=== PATIENT | male | born 1965 | race Caucasian/White ===

== ENCOUNTER 2019-06-17 09:29 | Outpatient (CLI) | payer MEDICAID, SELFPAY ==
--- NOTE | 2019-06-17 10:12 | ECHO_ITS ---
Patient Info Name: Matteo Waterman Age: 54 years : 1965 Gender: Male Ht: 71 in Wt: 235 lbs BSA: 2.34 m2 HR: 70 bpm BP: 167 / 100 mmHg Technical Quality: Fair Exam Date: 06/17/2019 10:25 AM Exam Location: [facility] Patient Status: Outpatient Admit Date: 06/17/2019 Staff Ordering Physician: Dennis Mancilla DO Tribal Delegate: Al Meier RDCS, RT Attending Provider: Dennis Mancilla DO Referring Physician: Laurent SANTAMARIA; Exam Type: CA echo dop color flow w con Study Info Indications I42.1 - Obstructive hypertrophic cardiomyopathy Complete two-dimensional, color flow and Doppler transthoracic echocardiogram is performed with contrast to opacify the left ventrical and to improve the deliniation of the left ventrical endocarial boarders. Summary 1. Left ventricular chamber dimension is normal. 2. Definity contrast administered improved wall motion interpretation. 3. Ventricular septum is sigmoid shaped. 4. Left ventricular systolic function is normal, estimated at 60-65%. 5. There is moderately increased left ventricular wall thickness. 6. The left ventricular diastolic function is grade I diastolic dysfunction. 7. E/e' 7 is not elevated. Left Ventricle Definity contrast administered improved wall motion interpretation. Ventricular septum is sigmoid shaped. E/e' 7 is not elevated. Left ventricular chamber dimension is normal. Left ventricular systolic function is normal, estimated at 60-65%. There is moderately increased left ventricular wall thickness. The left ventricular diastolic function is grade I diastolic dysfunction. Right Ventricle Right ventricular chamber dimension is normal. Right ventricular systolic function is normal. Left Atria Left atrial chamber dimension is normal. Right Atria Right atrial chamber dimension is normal. Aortic Valve The aortic valve is trileaflet. There is no aortic valve stenosis. There is no aortic valve regurgitation. Pulmonic Valve There is no pulmonic regurgitation. Mitral Valve There is no mitral valve stenosis. There is no mitral valve regurgitation. Tricuspid Valve There is no tricuspid valve regurgitation. Pericardium/Pleural There is no pericardial effusion. Inferior Vena Cava Normal inferior vena cava with >50% collapse upon inspiration consistent with normal right atrial pressure, 5 mmHg. Aorta The aortic root size at the sinus of Valsalva is normal. Left Ventricular Outflow Tract Name Value Normal LVOT 2D LVOT Diameter 2.06 cm LVOT Doppler LVOT Peak Gradient 10 mmHg LVOT Mean Gradient 6 mmHg LVOT VTI 32.26 cm LVOT VTI/AV VTI Ratio 0.57 LVOT Stroke Volume 107.62 ml LVOT CO 7.47 l/min LVOT CI 3.19 L/min/m2 Pulmonic Valve Name Value Normal
== END 2019-06-17 09:30 | disposition home or self-care (01) ==
LOC: ANHCARD 09:31
PROVIDERS: PCP Family Medicine; Visit Provider Internal Medicine Cardiovascular Disease
DX: I42.1 Obstructive hypertrophic cardiomyopathy (principal)
CPT/HCPCS: C8929

== ENCOUNTER 2019-06-18 09:39 | Outpatient (CLI) | payer MEDICAID, SELFPAY ==
--- NOTE | ~2019-06-18 | XR_ITS ---
EXAMINATION: XR shoulder RT min 2V EXAM DATE: 06/18/2019 09:58 INDICATION: No known recent injury provided at this time. Pain of the right shoulder. TECHNIQUE: The following right shoulder projections obtained: frontal projection with internal rotati on, frontal projection with external rotation, Grashey, and scapular Y view (4+ views). There is no prior study for comparison. FINDINGS: Possible small rotator cuff calcific tendinosis between the humeral head and acromion. The re is mild glenohumeral, mild to moderate acromioclavicular joint primary osteoarthritis. There are n o acute fractures or dislocations identified. There is no subcutaneous gas. The soft tissue is unre markable. There are no radiopaque foreign bodies. IMPRESSION: Mild to moderate right shoulder osteoarthritis. Possible calcific tendinosis. Reviewed, dictated and finalized at location B. NING FRAME FIXER IMPRESSION: Mild to moderate right shoulder osteoarthritis. Possible calcific t endinosis.
== END 2019-06-18 09:40 | disposition home or self-care (01) ==
PROVIDERS: PCP Family Medicine; Visit Provider Family Medicine
DX: M25.511 Pain in right shoulder (principal)
CPT/HCPCS: 73030

== ENCOUNTER 2019-07-28 08:32 | Outpatient (CLI) | payer OTHER, SELFPAY ==
--- NOTE | 2019-07-28 10:30 | NEURO_ITS ---
Patient Number: [id number] Impression: # Complains of right shoulder pain and numbness of right hand. # Mild Carpal Tunnel Syndrome. # No ulnar neuropathy. # Normal needle/EMG exam including deltoid, triceps and bicep. # Clinical correlation recommended. Nerve Conduction Studies Anti Sensory Summary Table Stim Site NR Peak (ms) P-T Amp (?V) Site1 Site2 Delta-P (ms) Dist (cm) Dieudonne (m/s) Right Median Anti Sensory (2-3nd Digit) Wrist 4.1 12.1 Wrist 2-3nd Digit 4.1 14.0 34 Wrist 4.3 11.4 Wrist 2-3nd Digit 4.1 14.0 34 Right Radial Anti Sensory (Base 1st Digit) Wrist 1.8 21.7 Wrist Base 1st Digit 1.8 0.0 Right Ulnar Anti Sensory (5th Digit) Wrist 2.2 39.1 Wrist 5th Digit 2.2 14.0 64 Motor Summary Table Stim Site NR Onset (ms) O-P Amp (mV) Site1 Site2 Delta-0 (ms) Dist (cm) Dieudonne (m/s) Right Median Motor (Abd Poll Brev) Wrist 3.7 3.1 Elbow Wrist 5.5 29.0 53 Elbow 9.2 2.3 Right Ulnar Motor (Abd Dig Minimi) Wrist 2.5 5.2 A Elbow Wrist 5.5 31.0 56 A Elbow 8.0 4.1 F Wave Studies NR F-Lat (ms) L-R F-Lat (ms) Right Median (Mrkrs) (Abd Poll Brev) 32.01 Right Ulnar (Mrkrs) (Abd Dig Min) 29.05 EMG Side Muscle Nerve Root Ins Act Fibs Amp Dur Recrt Comment Right 1stDorInt Ulnar C8-T1 Nml Nml Nml Nml Nml Right Ext Indicis Radial (Post Int) C7-8 Nml Nml Nml Nml Nml Right Ext Digitorum Radial (Post Int) C7-8 Nml Nml Nml Nml Nml Right BrachioRad Radial C5-6 Nml Nml Nml Nml Nml Right PronatorTeres Median C6-7 Nml Nml Nml Nml Nml Right Abd Poll Brev Median C8-T1 Nml Nml Nml Nml Nml Right Biceps Musculocut C5-6 Nml Nml Nml Nml Nml Right Triceps Radial C6-7-8 Nml Nml Nml Nml Nml Right Deltoid Axillary C5-6 Nml Nml Nml Nml Nml MTDD
== END 2019-07-28 08:33 | disposition home or self-care (01) ==
PROVIDERS: PCP Family Medicine; Visit Provider Family Medicine
DX: M25.511 Pain in right shoulder (principal); G56.01 Carpal tunnel syndrome, right upper limb
CPT/HCPCS: 95886; 95909

== ENCOUNTER 2019-09-11 07:11 | Outpatient (CLI) | payer OTHER, SELFPAY | END 2019-09-11 07:12 | disposition home or self-care (01) | LOC: CHSIMG 07:11 | PROVIDERS: PCP Family Medicine; Visit Provider Family Medicine | DX: M75.101 Unspecified rotator cuff tear or rupture of right shoulder, not specified as traumatic (principal); Z53.9 Procedure and treatment not carried out, unspecified reason | CPT/HCPCS: 99199 ==

== ENCOUNTER 2020-08-09 13:24 | Outpatient (CLI) | payer OTHER, SELFPAY ==
[2020-08-09 14:29] LABS: Influenza A QL RT-PCR Negative (Negative); Influenza B QL RT-PCR Negative (Negative); SARS-CoV-2 RNA PCR Negative (Negative)
== END 2020-08-09 13:25 | disposition home or self-care (01) ==
LOC: CHSLAB 13:28
PROVIDERS: PCP Family Medicine; Visit Provider Family Medicine
DX: J00 Acute nasopharyngitis [common cold] (principal); Z20.822 Contact with and (suspected) exposure to COVID-19
CPT/HCPCS: 87502; C9803; U0003; U0005

== ENCOUNTER 2021-08-06 09:37 | Outpatient (CLI) | payer OTHER, SELFPAY ==
[2021-08-06 10:45] LABS: Influenza A QL RT-PCR Negative (Negative); Influenza B QL RT-PCR Negative (Negative); SARS-CoV-2 RNA PCR Negative (Negative)
== END 2021-08-06 09:38 | disposition home or self-care (01) ==
LOC: CHSLAB 09:38
PROVIDERS: PCP Family Medicine; Visit Provider Family Medicine
DX: J06.9 Acute upper respiratory infection, unspecified (principal); Z20.822 Contact with and (suspected) exposure to COVID-19
CPT/HCPCS: 87502; C9803; U0003; U0005

== ENCOUNTER 2022-03-26 14:11 | Outpatient (CLI) | payer OTHER, SELFPAY ==
--- NOTE | 2022-03-26 14:23 | ECHO_ITS ---
Patient Info Name: Matteo Waterman Age: 57 years : 1965 Gender: Male Ht: 71 in Wt: 240 lbs BSA: 2.37 m2 HR: 81 bpm BP: 149 / 81 mmHg Technical Quality: Fair Exam Date: 03/26/2022 3:14 PM Exam Location: [facility] Patient Status: Outpatient Admit Date: 03/26/2022 Staff Ordering Physician: Dennis Mancilla DO Gripper Installer: Huey Bolden RDCS Attending Provider: Dennis Mancilla DO Referring Physician: Laurent SANTAMARIA; Exam Type: CA echo doppler color flow Study Info Indications I42.1 - Obstructive hypertrophic cardiomyopathy Complete two-dimensional, color flow and Doppler transthoracic echocardiogram is performed. Summary 1. Complete two-dimensional, color flow and Doppler transthoracic echocardiogram is performed. 2. Left ventricular chamber dimension is normal. 3. Ventricular septum is sigmoid shaped suggestive of hypertrophic cardiomyopathy but no significant LVOT gradient. 4. Left ventricular systolic function is normal, estimated at 60-65%. 5. There is moderately increased left ventricular wall thickness. 6. The left ventricular diastolic function is grade I diastolic dysfunction. 7. E/e' 8 is minimally elevated. 8. Left atrial chamber dimension is moderately enlarged. 9. There is mild mitral valve regurgitation. 10. There is trace pulmonic regurgitation. Left Ventricle Ventricular septum is sigmoid shaped suggestive of hypertrophic cardiomyopathy but no significant LVOT gradient. E/e' 8 is minimally elevated. Left ventricular chamber dimension is normal. Left ventricular systolic function is normal, estimated at 60-65%. There is moderately increased left ventricular wall thickness. The left ventricular diastolic function is grade I diastolic dysfunction. Right Ventricle Right ventricular chamber dimension is normal. Right ventricular systolic function is normal. Left Atria Left atrial chamber dimension is moderately enlarged. Right Atria Right atrial chamber dimension is normal. Aortic Valve The aortic valve is trileaflet. There is no aortic valve stenosis. There is no aortic valve regurgitation. Pulmonic Valve There is trace pulmonic regurgitation. Mitral Valve There is no mitral valve stenosis. There is mild mitral valve regurgitation. Tricuspid Valve There is no tricuspid valve regurgitation. Pericardium/Pleural There is no pericardial effusion. Inferior Vena Cava Normal inferior vena cava with >50% collapse upon inspiration consistent with normal right atrial pressure, 5 mmHg. Aorta The aortic root size at the sinus of Valsalva is normal. Left Ventricular Outflow Tract Name Value Normal LVOT 2D LVOT Diameter 2.4 cm LVOT Doppler LVOT Peak Gradient 6 mmHg LVOT Mean Gradient 3 mmHg LVOT VTI 24 cm LVOT VTI/AV VTI Ratio 0.3 LVOT Stroke Volume 113 ml LVOT CO 7.0 l/min LVOT CI 2.9 l/min/m2 Mitral Valve
== END 2022-03-26 14:12 | disposition home or self-care (01) ==
PROVIDERS: PCP Family Medicine; Visit Provider Internal Medicine Cardiovascular Disease
DX: I42.1 Obstructive hypertrophic cardiomyopathy (principal); I51.7 Cardiomegaly
CPT/HCPCS: 93306

== ENCOUNTER 2022-07-09 08:58 | Outpatient (CLI) | payer OTHER, SELFPAY ==
--- NOTE | ~2022-07-09 | XR_ITS ---
Left Hand Technique: PA, oblique, and lateral views were obtained. Clinical History: Fourth digit trigger finger, pain Findings: No acute fracture or dislocation is seen. Osseous alignment is anatomic. There is moderate degenerative change at the first carpometacarpal joint. Soft tissues are unremarkable. Impression: Moderate degenerative change of the first carpometacarpal joint. Reviewed, dictated and finalized at location . Impression: Moderate degenerative change of the first carpometacarpal joint.
== END 2022-07-09 08:59 | disposition home or self-care (01) ==
LOC: CHSIMG 09:00
PROVIDERS: PCP Family Medicine; Visit Provider Family Medicine
DX: M65.342 Trigger finger, left ring finger (principal)
CPT/HCPCS: 73130

== ENCOUNTER 2022-11-28 08:25 | Emergency (ER) | payer OTHER, SELFPAY ==
--- NOTE | ~2022-11-28 | XR_ITS ---
EXAMINATION: XR chest 2V DATE: 11/28/2022 08:54 INDICATION: Chest pain. Shortness of breath. Dizziness. TECHNIQUE: Frontal and lateral views of the chest were obtained. COMPARISON: Chest single view 04/28/2018 FINDINGS: There is no pneumonia, pleural effusion, or pneumothorax. The heart size is normal. IMPRESSION: 1. No acute cardiopulmonary disease. Reviewed, dictated and finalized at location A.
--- NOTE | 2022-11-28 08:27 | ECG_ITS ---
Measurements Intervals [place] Rate: 81 P: MD: 0 QRS: 8 QRSD: 97 T: -35 QT: 394 QTc: 460 Interpretive Statements ATRIAL FIBRILLATION MODERATE VOLTAGE CRITERIA FOR LVH, CONSIDER NORMAL VARIANT [MEETS CRITERIA IN ONE OF: R(aVL), S(V1), R(V5), R(V5/V6)+S(V1)] ST DEVIATION AND MODERATE T-WAVE ABNORMALITY, CONSIDER INFERIOR ISCHEMIA [-0.1+ mV T- WAVE IN II/aVF] ABNORMAL ECG NO PREVIOUS ECG AVAILABLE FOR COMPARISON Electronically Signed On 11-28-2022 9:11:38 CDT by Billy Portillo M.D.
[2022-11-28 08:28] VITALS: BP 122/74; PULSE 87; TEMP 36.2; O2SAT 97
[2022-11-28 09:01] LABS: Basophils Absolute Auto 0.07 K/mm3 (0.00-0.10); Basophils Percent Auto 0.9 % (0.0-1.0); Eosinophils Absolute Auto 0.17 K/mm3 (0.02-0.50); Eosinophils Percent Auto 2.1 % (1.0-6.0); Hematocrit 46.2 % (40.0-54.0); Immature Granulocyte Absolute 0.03 K/mm3 (0.00-0.00); Immature Granulocyte Percent A 0.4 % (0.0-0.0); Lymphocytes Absolute Auto 2.55 K/mm3 (1.10-4.50); Lymphocytes Percent Auto 31.7 % (18.0-42.0); Mean Corpuscular HGB Conc 34.6 g/dL (32.0-36.0); Mean Corpuscular Hemoglobin 31.4 pg (27.0-31.0); Mean Corpuscular Volume 90.8 fL (78.0-102.0); Mean Platelet Volume 10.7 fl (8.7-11.0); Monocytes Absolute Auto 0.73 K/mm3 (0.10-0.90); Monocytes Percent Auto 9.1 % (2.0-11.0); Neutrophils Absolute Auto 4.5 K/mm3 (1.7-7.2); Neutrophils Percent Auto 55.8 % (50.0-70.0); Platelet Count Result 232 K/mm3 (150-420); Red Blood Count 5.09 M/mm3 (4.70-6.10); Red Cell Distribution Width 12.4 % (11.6-14.4)
[2022-11-28 09:05] VITALS: PULSE 79
[2022-11-28 09:09] VITALS: O2SAT 97
[2022-11-28 09:25] LABS: NT Pro B Type Natriuretic Pept 949 pg/mL (0-125)
[2022-11-28 09:25] LABS: Alanine Aminotransferase 36 U/L (16-63); Albumin Level 3.8 g/dL (3.4-5.0); Alkaline Phosphatase 92 U/L (46-116); Anion Gap 8 mmol/L (8-16); Aspartate Amino Transferase 23 U/L (15-37); Bilirubin,Total 0.7 mg/dL (0.00-1.00); Blood Urea Nitrogen 13 mg/dL (7-18); Calcium 9.2 mg/dL (8.5-10.1); Carbon Dioxide 29 mmol/L (21-32); Chloride 105 mmol/L (98-108); Estimated CRCL calculation 95 ml/min; Estimated Glomerular Filt Rate > 60; Glucose 106 mg/dL (70-99); Osmolality Calculated 294 mOsm/kg (285-295); Potassium 4.5 mmol/L (3.5-5.1); Sodium 142 mmol/L (136-145); Total Protein 6.8 g/dL (6.4-8.2); Troponin I 18.9 ng/L (0.00-60.4)
--- NOTE | 2022-11-28 09:48 | ED.GENADULT ---
HPI - General Adult General Chief complaint: Chest Pain Stated complaint: chest pain Time Seen by Provider: 11/28/22 08:42 History of Present Illness HPI narrative: 57yo man history of afib on aspirin 325 mg, presents with concern for aching in the back of his head, neck, shoulder, and chest for the past 3 days, waxing/waning, that is now completely resolved. He felt chiled overnight and was sweaty. Chills now resolved. No dyspnea, chest pain, leg swelling, nausea. No known sick contacts. Related Data Home Medications Medication Instructions Recorded Confirmed mcipgpqi-vbuuejka-cbnfl acid 400 1 tablet PO DAILY 06/07/19 11/28/22 mcg-vit K 20 mcg-lycop 300 mcg tablet (Men's Multivitamin) aspirin 325 mg tablet,delayed 325 mg PO DAILY 02/11/22 11/28/22 release metoprolol tartrate 50 mg tablet 50 mg PO BID 11/28/22 11/28/22 omega 6-qdk-meu-fish oil 120 1 cap PO DAILY 11/28/22 11/28/22 mg-180 mg-500 mg capsule (Fish Oil) rosuvastatin 10 mg tablet 10 mg PO DAILY 11/28/22 11/28/22 Allergies Allergy/AdvReac Type Severity Reaction Status Date / Time Bleach (Sodium Hypochlorite) Allergy Dyspnea / Verified 11/28/22 09:13 SOB Review of Systems Review of Systems: All systems reviewed & are unremarkable except as noted in HPI and below Constitutional: Constitutional: Reports chills ENT: Denies dysphagia, Denies vertigo and Denies dizziness Cardiovascular: Cardiovascular: Reports chest pain Respiratory: Respiratory: Denies cough, Denies dyspnea and Denies wheezing Gastrointestinal: Gastrointestinal: Denies abdominal pain and Denies nausea PMFSH Past Medical History Medical History Arthritis Cancer Cardiac arrhythmia Diabetes Mild HOCM (hypertrophic obstructive cardiomyopathy) Myocardial infarction Family History Family History Father Cancer Mother Congestive heart failure Father Family history of malignant neoplasm Mother Family history of congestive heart failure Social History Social History Smoking status: Never smoker Alcohol intake: current Substance use type: does not use Living arrangements: with family Occupation/Education: occupation Gender identity (if verbalized by the patient): Male Exam Const: General: healthy appearing and no acute distress Nutritional Appearance: well nourished Eyes: Conjunctivae: conjunctivae normal Neck: Neck: no meningeal signs Resp: Effort & Inspection: normal respiratory effort and not labored Auscultation: clear to auscultation bilaterally Cardio: Rate: regular rate Rhythm: abnormal rhythm Other: rate controlled afib GI: Inspection: non-distended Extrem: General: no clubbing, cyanosis or edema and no edema Course Vital Signs Vital signs: Vital Signs Temperature 36.2 C L 11/28/22 08:28 Pulse Rate 87 11/28/22 08:28 Blood Pressure 122/74 11/28/22 08:28 Pulse Oximetry 97 11/28/22 08:28 Oxygen Delivery Room Air 11/28/22 08:28 Temperature 36.2 C L 11/28/22 08:28 Pulse Rate 79 11/28/22 09:05 Blood Pressure 122/74 11/28/22 08:28 Pulse Oximetry 97 11/28/22 09:09 Oxygen Delivery Room Air 11/28/22 09:09 Medical Decision Making MDM Narrative Medical decision making narrative: muscle aches to head, neck, chest, shoulders, chills DDx acute viral syndrome, acute coronary syndrome, heart failure, afib, muscle strain or spasm Vital Signs Vital Signs: Vital Signs Temperature 36.2 C L 11/28/22 08:28 Pulse Rate 87 11/28/22 08:28 Blood Pressure 122/74 11/28/22 08:28 Pulse Oximetry 97 11/28/22 08:28 Oxygen Delivery Room Air 11/28/22 08:28 Temperature 36.2 C L 11/28/22 08:28 Pulse Rate 79 11/28/22 09:05 Blood Pressure 122/74 11/28/22 08:28 Pulse Oximetry 97 11/28/22 09:09 Ox
[2022-11-28 10:14] VITALS: BP 123/68; PULSE 83; RESP 20; TEMP 36.7; O2SAT 96
== END 2022-11-28 10:15 | disposition home or self-care (01) ==
PROVIDERS: Emergency Provider Emergency Medicine; PCP Family Medicine
DX: I48.91 Unspecified atrial fibrillation (principal); R07.89 Other chest pain; M79.10 Myalgia, unspecified site; R68.83 Chills (without fever); Z79.82 Long term (current) use of aspirin; Z79.899 Other long term (current) drug therapy; E11.9 Type 2 diabetes mellitus without complications; I25.2 Old myocardial infarction
CPT/HCPCS: 36415; 71046; 80053; 83880; 84484; 85025; 93005; 99284

== ENCOUNTER 2023-05-08 09:18 | Outpatient (CLI) | payer OTHER, SELFPAY ==
[2023-05-08 10:09] LABS: SARS-CoV-2 RNA PCR Negative (Negative)
[2023-05-08 10:10] LABS: Influenza A QL RT-PCR Negative (Negative); Influenza B QL RT-PCR Negative (Negative)
== END 2023-05-08 09:19 | disposition home or self-care (01) ==
LOC: CHSLAB 09:19
PROVIDERS: PCP Family Medicine; Visit Provider Family Medicine
DX: J06.9 Acute upper respiratory infection, unspecified (principal); Z20.822 Contact with and (suspected) exposure to COVID-19
CPT/HCPCS: 87636

== ENCOUNTER 2023-07-17 12:15 | Outpatient (CLI) | payer OTHER, SELFPAY ==
--- NOTE | 2023-07-17 12:35 | ECHO_ITS ---
Patient Info Name: Matteo Waterman Age: 58 years : 1965 Gender: Male Ht: 71 in Wt: 245 lbs BSA: 2.40 m2 HR: 77 bpm BP: 152 / 92 mmHg Technical Quality: Fair Exam Date: 07/17/2023 12:39 PM Exam Location: Echo Lab Patient Status: Outpatient Admit Date: 07/17/2023 Staff Ordering Physician: Dennis Mancilla DO Fire Support Man: Ramu Patel RDCS Attending Provider: Dennis Mancilla DO Referring Physician: Laurent SANTAMARIA; Exam Type: CA echo doppler color flow Study Info Indications I42.1 - Obstructive hypertrophic cardiomyopathy Complete two-dimensional, color flow and Doppler transthoracic echocardiogram is performed. Summary 1. Complete two-dimensional, color flow and Doppler transthoracic echocardiogram is performed. 2. Left ventricular chamber dimension is normal. 3. Ventricular septum is sigmoid shaped. Mild resting LVOT obstruction peak 15 mmHg and mean 7 mmHg suggestive of hypertrophic cardiomyopathy. 4. Left ventricular systolic function is normal, estimated at 65-70%. 5. The left ventricular diastolic function is grade I diastolic dysfunction. 6. E/e' 10 is mildly elevated. 7. Left atrial chamber dimension is mildly enlarged. 8. No pulmonary hypertension, estimated pulmonary arterial systolic pressure is 13 mmHg. Left Ventricle E/e' 10 is mildly elevated. Ventricular septum is sigmoid shaped. Mild resting LVOT obstruction peak 15 mmHg and mean 7 mmHg suggestive of hypertrophic cardiomyopathy. Left ventricular chamber dimension is normal. Left ventricular systolic function is normal, estimated at 65-70%. The left ventricular diastolic function is grade I diastolic dysfunction. Right Ventricle Right ventricular chamber dimension is normal. Right ventricular systolic function is normal. Left Atria Left atrial chamber dimension is mildly enlarged. Right Atria Right atrial chamber dimension is normal. Aortic Valve The aortic valve is trileaflet. There is no aortic valve stenosis. There is no aortic valve regurgitation. Pulmonic Valve There is no pulmonic regurgitation. Mitral Valve There is no mitral valve stenosis. There is no mitral valve regurgitation. Tricuspid Valve There is no tricuspid valve regurgitation. No pulmonary hypertension, estimated pulmonary arterial systolic pressure is 13 mmHg. Pericardium/Pleural There is no pericardial effusion. Inferior Vena Cava Normal inferior vena cava with >50% collapse upon inspiration consistent with normal right atrial pressure, 5 mmHg. Aorta The aortic root size at the sinus of Valsalva is normal. Left Ventricular Outflow Tract Name Value Normal LVOT 2D LVOT Diameter 2.1 cm LVOT Doppler LVOT Peak Gradient 15 mmHg LVOT Mean Gradient 7 mmHg LVOT VTI 37 cm LVOT VTI/AV VTI Ratio 0.9 LVOT Stroke Volume 127 ml LVOT CO 8.7 l/min LVOT CI 3.6 l/min/m2 Pulmonic Valve Name Value Normal
== END 2023-07-17 12:16 | disposition home or self-care (01) ==
LOC: ANHCARD 12:16
PROVIDERS: PCP Family Medicine; Visit Provider Internal Medicine Cardiovascular Disease
DX: I42.1 Obstructive hypertrophic cardiomyopathy (principal); R93.1 Abnormal findings on diagnostic imaging of heart and coronary circulation; I51.7 Cardiomegaly
CPT/HCPCS: 93306

== ENCOUNTER 2023-10-24 10:49 | Outpatient (CLI) | payer OTHER, SELFPAY ==
[2023-10-24 11:27] LABS: Basophils Absolute Auto 0.07 K/mm3 (0.00-0.10); Basophils Percent Auto 0.8 % (0.0-1.0); Eosinophils Absolute Auto 0.23 K/mm3 (0.02-0.50); Eosinophils Percent Auto 2.7 % (1.0-6.0); Hematocrit 48.5 % (40.0-54.0); Immature Granulocyte Absolute 0.04 K/mm3 (0.00-0.00); Immature Granulocyte Percent A 0.5 % (0.0-0.0); Lymphocytes Absolute Auto 2.59 K/mm3 (1.10-4.50); Lymphocytes Percent Auto 30.7 % (18.0-42.0); Mean Corpuscular HGB Conc 35.1 g/dL (32-36); Mean Corpuscular Hemoglobin 31.4 pg (27.0-31.0); Mean Corpuscular Volume 89.6 fL (78.0-102.0); Mean Platelet Volume 10.6 fl (8.7-11.0); Monocytes Absolute Auto 0.69 K/mm3 (0.10-0.90); Monocytes Percent Auto 8.2 % (2.0-11.0); Neutrophils Absolute Auto 4.82 K/mm3 (1.70-7.20); Neutrophils Percent Auto 57.1 % (50.0-70.0); Platelet Count Result 248 K/mm3 (150-420); Red Blood Count 5.41 M/mm3 (4.70-6.10); Red Cell Distribution Width 12.6 % (11.6-14.4); White Blood Count 8.4 K/mm3 (4.8-10.8)
[2023-10-24 11:41] LABS: MALB Creatinine Ratio 39.1 mg/g (0-30); Microalbumin Urine Random < 13.0 mg/L
[2023-10-24 11:42] LABS: Partial Thromboplastin Time 25.1 Sec (23.9-30.70); Prothrombin Time 10.5 Seconds (9.50-12.1)
[2023-10-24 11:43] LABS: Hemoglobin A1C 5.3 % (<5.7)
[2023-10-24 11:55] LABS: Strep Group A RT-PCR NOT DETECTED (Negative)
[2023-10-24 12:04] LABS: SARS-CoV-2 RNA PCR Negative (Negative)
[2023-10-24 12:06] LABS: Influenza A QL RT-PCR Negative (Negative); Influenza B QL RT-PCR Negative (Negative)
[2023-10-24 12:24] LABS: Alanine Aminotransferase 80 U/L (16-63); Albumin Level 4.2 g/dL (3.4-5.0); Alkaline Phosphatase 80 U/L (46-116); Anion Gap 8 mmol/L (4-12); Aspartate Amino Transferase 40 U/L (15-37); Bilirubin,Total 0.7 mg/dL (0.00-1.00); Blood Urea Nitrogen 11 mg/dL (7-18); Calcium 9.9 mg/dL (8.5-10.1); Carbon Dioxide 29 mmol/L (21-32); Chloride 103 mmol/L (98-108); Estimated Glomerular Filt Rate > 60; Free T4 Free Thyroxine 0.83 ng/dL (0.76-1.46); Glucose 89 mg/dL (70-99); Magnesium 2.1 mg/dL (1.8-2.4); Osmolality Calculated 288 mOsm/kg (285-295); Potassium 4.8 mmol/L (3.5-5.1); Sodium 140 mmol/L (136-145); Thyroid Stimulating Hormone 3.54 uIU/mL (0.36-3.74); Total Protein 7.1 g/dL (6.4-8.2)
[2023-10-26 06:13] LABS: Sex Hormone Binding Globulin 28 nmol/L (22-77)
[2023-10-28 11:24] LABS: Testosterone Free 60.9 pg/mL (35.0-155.0); Testosterone Total 343 ng/dL (250-1100)
== END 2023-10-24 10:50 | disposition home or self-care (01) ==
LOC: CHSLAB 10:53
PROVIDERS: PCP Family Medicine; Visit Provider Family Medicine
DX: I10 Essential (primary) hypertension (principal); I48.0 Paroxysmal atrial fibrillation; R73.9 Hyperglycemia, unspecified; J02.9 Acute pharyngitis, unspecified
CPT/HCPCS: 36415; 80053; 82043; 83036; 83735; 84270; 84402; 84403; 84439; 84443; 85025; 85610; 85730; 87636; 87651

== ENCOUNTER 2023-11-03 08:06 | Outpatient (CLI) | payer OTHER, SELFPAY ==
--- NOTE | 2023-11-03 08:12 | ECG_ITS ---
Test Date: 2023-11-03 08:21:14 Measurements Intervals [place] Rate: 63 P: 58 MA: 203 QRS: 19 QRSD: 116 T: -3 QT: 422 QTc: 434 Interpretive Statements SINUS RHYTHM INTRAVENTRICULAR CONDUCTION DELAY ST-T WAVE ABNORMALITY IN INFERIOR LEADS- CONSIDER ISCHEMIA ABNORMAL ECG No previous ECG available for comparison Electronically Signed On 11-03-2023 08:22:08 CDT by Dennsi Mancilla D.O.
== END 2023-11-03 08:07 | disposition home or self-care (01) ==
LOC: CHSCARD 08:09
PROVIDERS: PCP Family Medicine; Visit Provider Internal Medicine Cardiovascular Disease
DX: I48.0 Paroxysmal atrial fibrillation (principal); R94.31 Abnormal electrocardiogram [ECG] [EKG]
CPT/HCPCS: 93005

== ENCOUNTER 2023-11-14 11:28 | Emergency (ER) | payer OTHER, SELFPAY ==
[2023-11-14] VITALS (22 sets, daily range): BP systolic 125–156; BP diastolic 50–93; PULSE 67–75; RESP 11–24; TEMP 35.6–36.4; O2SAT 94–98
--- NOTE | ~2023-11-14 | XR_ITS ---
EXAMINATION: XR chest 2V 11/14/2023 12:22 INDICATION: Shortness of breath and chest tightness. Diaphoresis. PROCEDURE: 2 view chest COMPARISON: 11/28/2022 FINDINGS: The lungs are clear. The cardiomediastinal silhouette is within normal limits. There are no pleural effusions. There is no pneumothorax suspected. IMPRESSION: 1: NO ACUTE CARDIOPULMONARY DISEASE. Reviewed, dictated and finalized at location B.
--- NOTE | 2023-11-14 11:31 | ECG_ITS ---
Test Date: 2023-11-14 11:38:49 Measurements Intervals [place] Rate: 74 P: 35 IL: 177 QRS: -7 QRSD: 113 T: -21 QT: 408 QTc: 454 Interpretive Statements SINUS RHYTHM INTRAVENTRICULAR CONDUCTION DELAY EARLY PRECORDIAL R/S TRANSITION LEFT VENTRICULAR HYPERTROPHY ST-T WAVE ABNORMALITY IN INFERIOR LEADS- CONSIDER ISCHEMIA BASELINE ARTIFACT- II, III, AVF ABNORMAL ECG Compared to ECG 11/03/2023 08:21:14 NO SIGNIFICANT CHANGE Electronically Signed On 11-14-2023 11:46:32 CDT by Dennis Mancilla D.O.
--- NOTE | 2023-11-14 12:01 | ED.URI ---
HPI - URI/Sore Throat General Chief Complaint: Upper Respiratory Infection Stated Complaint: dizziness, feeling sick Time Seen by Provider: 11/14/23 11:43 Source: patient Mode of arrival: ambulatory Limitations: no limitations History of Present Illness HPI Narrative: patient is a 58-year-old male with cough and congestion and sore throat for the past 3 days. He has been having hot and cold sensations. Lots of sweating. MD elicited complaint: cough, sore throat and nasal congestion Onset (ago): day(s) (3) Consistency: constant Severity: moderate Pain scale (0-10): 3 Description of mucous: clear Able to tolerate fluids by mouth: Yes Exacerbating factors: nothing Relieving factors: nothing Associated symptoms: chills, myalgias, diaphoresis, nasal congestion, sore throat and shortness of breath Treatments prior to arrival: none Related Data Home Medications Medication Instructions Recorded Confirmed bivworuw-vdzlghon-pkbtp acid 400 1 tablet PO DAILY 06/07/19 11/14/23 mcg-vit K 20 mcg-lycop 300 mcg tablet (Men's Multivitamin) omega 8-mld-fpl-fish oil 120 1 cap PO DAILY 11/28/22 11/14/23 mg-180 mg-500 mg capsule (Fish Oil) rosuvastatin 10 mg tablet 10 mg PO DAILY 11/28/22 11/14/23 apixaban 5 mg tablet (Eliquis) 5 mg PO BID 10/27/23 11/14/23 Allergies Allergy/AdvReac Type Severity Reaction Status Date / Time Bleach (Sodium Hypochlorite) Allergy Dyspnea / Verified 11/14/23 11:34 SOB Review of Systems Review of Systems: All systems reviewed & are unremarkable except as noted in HPI and below Constitutional: Constitutional: Reports no additional constitutional complaints Eyes: Eyes: Reports no additional eye complaints ENT: Reports system reviewed and no additional complaints, except as documented Cardiovascular: Cardiovascular: Reports no additional cardiovascular complaints Respiratory: Respiratory: Reports no additional respiratory complaints Gastrointestinal: Gastrointestinal: Reports no additional gastrointestinal complaints Genitourinary: Genitourinary: Reports no additional male genitourinary complaints Musculoskeletal: Musculoskeletal: Reports no additional musculoskeletal complaints Integumentary/Breasts: Skin/Breast: Reports system reviewed and no additional complaints, except as docu Neurologic: Reports system reviewed and no additional complaints, except as documented Psychiatric: Psychiatric: Reports no additional psychiatric complaints Endocrine: Endocrine: Reports no additional endocrine complaints Hematologic/Lymphatic: Hematologic/Lymphatic: Reports no additional hematologic/lymphatic complaints Allergic/Immunologic: Allergic/Immunologic: Reports no additional allergic/immunologic complaints [facility] Past Medical History Medical History Arthritis Cancer Cardiac arrhythmia Diabetes Mild HOCM (hypertrophic obstructive cardiomyopathy) Myocardial infarction Family History Family History Father Cancer Mother Congestive heart failure Father Family history of malignant neoplasm Mother Family history of congestive heart failure Social History Social History Smoking status: Never smoker Alcohol intake: current Substance use type: does not use Do You Feel Safe in your Home?: Yes Lack of Transportation: No Lack of Food: Never True Current Housing: I Have Housing Concerned About Future Housing: No Difficulty Paying Gas/Electric Bills: No Difficulty Paying for Meds: YES Currently Unemployed: YES Education: High School Diploma/GED Difficulty w/ Childcare or Family Care: No Living arrangements: with family Occupation/Education: occupation Gender identity (if verbalized by the patient): Male Exam Const: General: healthy appearing Nutritional Appearance: well nourished [place]
[2023-11-14 12:12] LABS: SARS-CoV-2 RNA PCR Negative (Negative)
[2023-11-14 12:14] LABS: Influenza A QL RT-PCR Negative (Negative); Influenza B QL RT-PCR Negative (Negative); RSV RNA, RT-PCR Negative (Negative)
[2023-11-14 12:43] LABS: Basophils Absolute Auto 0.07 K/mm3 (0.00-0.10); Basophils Percent Auto 0.8 % (0.0-1.0); Eosinophils Absolute Auto 0.08 K/mm3 (0.02-0.50); Eosinophils Percent Auto 0.9 % (1.0-6.0); Hematocrit 46.2 % (40.0-54.0); Immature Granulocyte Absolute 0.02 K/mm3 (0.00-0.00); Immature Granulocyte Percent A 0.2 % (0.0-0.0); Lymphocytes Absolute Auto 1.73 K/mm3 (1.10-4.50); Lymphocytes Percent Auto 19.5 % (18.0-42.0); Mean Corpuscular HGB Conc 34.6 g/dL (32-36); Mean Corpuscular Hemoglobin 31.3 pg (27.0-31.0); Mean Corpuscular Volume 90.2 fL (78.0-102.0); Mean Platelet Volume 10.5 fl (8.7-11.0); Monocytes Absolute Auto 0.54 K/mm3 (0.10-0.90); Monocytes Percent Auto 6.1 % (2.0-11.0); Neutrophils Absolute Auto 6.41 K/mm3 (1.70-7.20); Neutrophils Percent Auto 72.5 % (50.0-70.0); Platelet Count Result 226 K/mm3 (150-420); Red Blood Count 5.12 M/mm3 (4.70-6.10); Red Cell Distribution Width 12.6 % (11.6-14.4); White Blood Count 8.9 K/mm3 (4.8-10.8)
[2023-11-14 13:02] LABS: Lactic Acid Reflex 1.2 mmol/L (0.4-2.0)
[2023-11-14 13:03] LABS: Alanine Aminotransferase 68 U/L (16-63); Albumin Level 4.1 g/dL (3.4-5.0); Alkaline Phosphatase 91 U/L (46-116); Anion Gap 8 mmol/L (4-12); Aspartate Amino Transferase 37 U/L (15-37); Bilirubin,Total 0.8 mg/dL (0.00-1.00); Blood Urea Nitrogen 12 mg/dL (7-18); Calcium 9.5 mg/dL (8.5-10.1); Carbon Dioxide 28 mmol/L (21-32); Chloride 103 mmol/L (98-108); Estimated CRCL calculation 96 ml/min; Estimated Glomerular Filt Rate > 60; Glucose 107 mg/dL (70-99); Osmolality Calculated 287 mOsm/kg (285-295); Potassium 4.6 mmol/L (3.5-5.1); Sodium 139 mmol/L (136-145); Total Protein 7.3 g/dL (6.4-8.2)
[2023-11-14 13:04] LABS: Troponin I 7.7 ng/L (0.00-60.4)
== END 2023-11-14 13:50 | disposition home or self-care (01) ==
PROVIDERS: Emergency Provider Emergency Medicine; PCP Family Medicine
DX: J40 Bronchitis, not specified as acute or chronic (principal); E11.9 Type 2 diabetes mellitus without complications; I25.2 Old myocardial infarction; Z79.01 Long term (current) use of anticoagulants; Z20.822 Contact with and (suspected) exposure to COVID-19
CPT/HCPCS: 36415; 71046; 80053; 83605; 84484; 85025; 87637; 93005; 99284